=== PATIENT | male | born 1985 | race Caucasian/White ===

== ENCOUNTER 2018-02-25 11:50 | Emergency (ER) | payer SELFPAY ==
[2018-02-25] MEDS ORDERED: SULFA/TRIMETH 800/160 (DS) TAB 1 EA TAB PO ONE (12:28)
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
[2018-02-25 17:48] VITALS: BP 142/84; TEMP 97.9; O2SAT 95
== END 2018-02-25 13:29 | disposition home or self-care (01) ==
LOC: ER 11:50
DX: S00.81XA Abrasion of other part of head, initial encounter (principal); R51 Headache; H53.8 Other visual disturbances; Z87.891 Personal history of nicotine dependence; Y92.410 Unspecified street and highway as the place of occurrence of the external cause; V29.9XXA Motorcycle rider (driver) (passenger) injured in unspecified traffic accident, initial encounter